=== PATIENT | male | born 1955 | race Caucasian/White ===

== ENCOUNTER 2016-11-07 19:42 | Emergency (ER) | payer SELFPAY ==
[2016-11-07] MEDS ORDERED: NEOMYCIN-BACITRACIN-POLYMYXIN 0.9 GM UD TOP ONE (19:55)
[2016-11-07] MEDS ORDERED: LIDOCAINE 1% W/ EPINEPHRINE 20 ML VIAL INJ ONE (20:00)
--- NOTE | 2016-11-07 20:00 | ED.PDOC ---
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 Can't get it to stop bleeding. No distal numbness or decrease ROM. Doees have pain with ROM of 2nd MCP joint. Timing/Duration: just prior to arrival Severity: mild Location: hands - Dorsum of L hand Improving Factors: other - Compression Worsening Factors: movement Associated Symptoms: denies symptoms Allergies/Adverse Reactions: Allergies NO KNOWN ALLERGY Allergy (Verified 11/07/16 20:12) Review of Systems - Review of Systems Constitutional: States: no symptoms reported EENTM: States: no symptoms reported Respiratory: States: no symptoms reported Cardiology: States: no symptoms reported Gastrointestinal/Abdominal: States: no symptoms reported Genitourinary: States: no symptoms reported Musculoskeletal: States: no symptoms reported. Denies: joint pain, muscle pain Skin: States: see HPI Neurological: States: no symptoms reported. Denies: numbness, paresthesia, tingling, weakness Endocrine: States: no symptoms reported Family Medical History - Family History Mother Family History: Unknown Living Status: Unknown Physical Exam - Physical Exam General Appearance: Alert, Comfortable, No apparent distress, Well Developed, Well Groomed, Well Hydrated, Well Nourished Extremity: normal range of motion, normal inspection, other - Laceration with tenderness and minimal bleeding on dorsum of L hand just proximal to 2nd MCP joint. ~2.5cm in length Neurologic: no motor/sensory deficits, alert, normal mood/affect, oriented x 3 Skin Exam: normal color, other - 2.5cm laceration on dorsum of L hand, brisk cap refill, normal distal sensation, Good ROM of index finger distal to laceration. Skin Problem Location: upper extremities - Dorsum L hand Skin Character: other - Laceration Procedures - Laceration/Wound Repair Left Dorsal Hand Wound Length (cm): 2.5 Wound's Depth, Shape: superficial, linear Wound Explored: no foreign body removed Betadine Prep?: No - scrubbed with hibiclens Anesthesia: Lidocaine w/ Epi Volume Anesthetic (cc's): 3 Wound Debrided: minimal Wound Repaired With: sutures Suture Size/Type: 4:0, prolene Number of Sutures: 4 Layer Closure?: No Sterile Dressing Applied?: Yes - antibiotic ointment and dressing placed by nurse Splint Applied?: No Sling Applied?: No Departure - Departure Clinical Impression: Laceration Time of Disposition: 20:35 Disposition: Discharge to Home or Self Care Condition: Good Instructions: DI for Laceration Repair -- Simple Diet: resume usual diet Activity: increase activity as tolerated Additional Instructions: Follow up with PCP in 2-3 days for wound check Suture removal in 7-10 days. Keep clean and dry for 48hours then clean with soap and water twice daily and cover with antibiotic ointment twice daily.
[2016-11-07] MEDS ORDERED: CHLORHEXIDINE GLUCONATE 4 % 15 ML UD TOP ONE (20:12)
[2016-11-07 20:17] VITALS: TEMP 98.3; O2SAT 97
[2016-11-07 20:44] VITALS: BP 129/86
== END 2016-11-07 20:48 | disposition home or self-care (01) ==
LOC: ER 19:42
DX: S61.412A Laceration without foreign body of left hand, initial encounter (principal); W26.0XXA Contact with knife, initial encounter